=== PATIENT | male | born 1970 | race Two or more races ===

== ENCOUNTER 2018-06-07 12:17 | Emergency (ER) | payer MEDICAID ==
--- NOTE | 2018-06-07 13:39 | ED Physician Chart ---
ED Chief Complaint/HPI - Patient Information Date Seen:: 06/07/18 Time Seen:: 12:26 Chief Complaint:: R ankle pain &v L knee pain History of Present Illness:: R ankle pain &v L knee pain possible trauma in past. Allergies:: Allergies Allergy/AdvReac Type Severity Reaction Status Date / Time No Known Allergies Allergy Verified 06/07/18 12:26 Vitals:: Vital Signs - 8 hr 06/07/18 12:26 Temp 98.4 F HR 76 RR 17 BP 120/68 O2 Sat % 97 Historian:: Patient Review:: Nurse's Note Reviewed ED Review of Systems - Review of Systems General/Constitutional: No fever, No chills, No weight loss, No weakness, No diaphoresis, No edema, No loss of appetite Skin: No skin lesions, No rash, No bruising Head: No headache, No light-headedness Eyes: No loss of vision, No pain, No diplopia ENT: No earache, No nasal drainage, No sore throat, No tinnitus Neck: No neck pain, No swelling, No thyromegaly, No stiffness, No mass noted Cardio Vascular: No chest pain, No palpitations, No PND, No orthopnea, No edema Pulmonary: No SOB, No cough, No sputum, No wheezing GI: No nausea, No vomiting, No diarrhea, No pain, No melena, No hematochezia, No constipation, No hematemesis G/U: No dysuria, No frequency, No hematuria Musculoskeletal: Bone or joint pain Endocrine: No polyuria, No polydipsia Psychiatric: No prior psych history, No depression, No anxiety, No suicidal ideation Hematopoietic: No bruising, No lymphadenopathy Allergic/Immuno: No urticaria, No angioedema Neurological: No syncope, No focal symptoms, No weakness, No paresthesia, No headache, No seizure, No dizziness, No confusion, No vertigo ED Past Medical History - Past Medical History Obtainable: Yes Past Medical History: No significant medical hx Family Medical History - Family Member Mother Hx Family Diabetes: Yes ED Physical Exam - Physical Examination General/Constitutional: Awake, Well-developed, well-nourished, Alert, No distress, GCS 15, Non-toxic appearing, Ambulatory Other Gen/Cons comments:: slightly somnolent Head: Atraumatic Other Skin comments:: sun burned Extremities: Normal digits & nails Other Extremities comments:: L knee slightly swollen. NV intact. R ankle swollen. NV intact. No open wounds present at all. Dirt present. Neuro/Psych: Alert/oriented, Mood normal ED Assessment - Assessment General Assessment: Left knee effusion, no fracture (per my reading of xray) Right ankle sprain, no fracture. (per my reading of xray) ED Septic Shock - . 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 apply ice pack as needed. Minimize alot of walking. - Aftercare/Follow up Instructions Aftercare/Follow-Up Instructions:: Refer to Discharge Instructions Notes:: minimize walking. keep jason bandage on. ice pack Medication Prescribed:: Ibuprofen 800 mg po tid # 15. Take with food or milk. - Patient Disposition Discharge/Transfer:: Home Condition at Disposition:: Stable, Improved
--- NOTE | 2018-06-08 08:42 | Diagnostic Imaging Report ---
Left knee (3 views) HISTORY: Pain Normal bone density. No focal lesions. No fractures. Joint spaces appear normal. Spur formation noted off the anterior superior margin of patella. IMPRESSION: 1. No acute bony abnormalities
--- NOTE | 2018-06-08 08:42 | Diagnostic Imaging Report ---
Right ankle (3 views) HISTORY: Pain, trauma No acute bony abnormalities. No fractures. Joint spaces appear normal. Spur formation is seen off the dorsal and plantar aspects of the posterior calcaneus. IMPRESSION: 1. No acute bony abnormalities 2. Calcaneal spur formation
== END 2018-06-07 13:50 | disposition home or self-care (01) ==
LOC: ER 12:17
DX: S93.401A Sprain of unspecified ligament of right ankle, initial encounter (principal); M25.462 Effusion, left knee; X58.XXXA Exposure to other specified factors, initial encounter; Y93.89 Activity, other specified; Y92.89 Other specified places as the place of occurrence of the external cause; Y99.8 Other external cause status
CPT/HCPCS: 99284; 96372; 73610; 73564; J1885; 73562-TC-LT; Z7502